=== PATIENT | male | born 1955 | race Caucasian/White ===

== ENCOUNTER → 2020-01-13 | Outpatient (CLI) | payer MEDICARE, BC ==
[~2020-01-13] MED LIST: Ibuprofen Ib200 MG PO; METO50 PO
== END | disposition home or self-care (01) ==
LOC: LAB SHORT 10:02 → LAB EV 10:02
DX: N39.0 Urinary tract infection, site not specified (principal)
CPT/HCPCS: 87077; 87086; 87186

== ENCOUNTER → 2020-01-21 | Outpatient (CLI) | payer MEDICARE, BC, OTHER | END | disposition home or self-care (01) | LOC: LAB EV 13:27 → LAB SHORT 13:27 | DX: R43.1 Parosmia (principal); Z20.828 Contact with and (suspected) exposure to other viral communicable diseases | CPT/HCPCS: U0003 ==

== ENCOUNTER → 2021-04-23 | Outpatient (CLI) | payer MEDICARE, OTHER | LOC: LAB SHORT 07:11 | DX: D48.5 Neoplasm of uncertain behavior of skin (principal) | CPT/HCPCS: 88312 ==

== ENCOUNTER 2023-12-16 13:17 | Day surgery (SDC) | payer MEDICARE, OTHER ==
[~2023-12-16] VITALS: Ht 175.3 cm; Wt 85.9 kg
[~2023-12-16 13:17] MED LIST changes: +Lactated Ringer's 1,000 ML IV ONE; +propofoL 50 ML IV ONE
[2023-12-16] MEDS ORDERED: Lactated Ringer's 1,000 ML IV ONE (15:07)
[2023-12-16] MEDS ORDERED: FentaNYL Citrate 50 MCG/ML 2 ML Injection ONE (15:19)
[2023-12-16] MEDS ORDERED: Midazolam HCL 1 MG/ML 5MLVIAL ONE (15:19)
[2023-12-16] MEDS ORDERED: propofoL 0 ML IV ONE (15:19)
[2023-12-16 15:52] VITALS: BP 116/68
== END 2023-12-16 16:07 | disposition home or self-care (01) ==
LOC: ORSCSDS 13:17
PROVIDERS: Internal Medicine Gastroenterology
PROC: 0DJD8ZZ Inspection of Lower Intestinal Tract, Via Natural or Artificial Opening Endoscopic (ICD-10-PCS; principal; 2023-12-16 14:30)
DX: Z12.11 Encounter for screening for malignant neoplasm of colon (principal); Z86.010 Personal history of colon polyps; D69.6 Thrombocytopenia, unspecified; G47.33 Obstructive sleep apnea (adult) (pediatric); Z79.899 Other long term (current) drug therapy
CPT/HCPCS: J2250; J2704; J3010; J7120